=== PATIENT | male | born 1930 | race Caucasian/White ===

== ENCOUNTER 2016-06-16 17:42 | Emergency (ER) | payer MEDICARE, OTHER ==
[2016-06-16 14:58] LABS: BASOPHILS 0.3 %; BASOPHILS ABSOLUTE 0.03 10/3/uL (0.0-0.16); EOSINOPHILS 0.7 %; EOSINOPHILS ABSOLUTE 0.07 10/3/uL (0.0-0.53); ER CBC TAT 0 Hrs 05 Mins; HEMATOCRIT 34.4 % (40.0-51.0); HEMOGLOBIN 10.3 g/dL (13.6-17.8); IMMATURE GRANULOCYTES 0.2 %; IMMATURE GRANULOCYTES ABSOLUTE 0.02 10/3/uL (0.0-0.11); LYMPHOCYTES 13.6 %; LYMPHOCYTES ABSOLUTE 1.29 10/3/uL (0.67-4.30); MEAN CORPUS HGB CONC 29.9 g/dL (32.0-36.0); MEAN CORPUSCULAR HEMOGLOB 23.6 pg (26.0-34.0); MEAN CORPUSCULAR VOLUME 78.9 fL (80-100); MEAN PLATELET VOLUME 9.4 fL (9.2-13.0); MONOCYTES 8.4 %; NEUTROPHILS 76.8 %; NEUTROPHILS ABSOLUTE 7.28 10/3/uL (2.02-8.40); PLATELET COUNT 228 10/3/uL (150-400); RED CELL COUNT 4.36 10/6/uL (4.7-6.1); WHITE BLOOD CELLS 9.5 10/3/uL (4.5-10.5)
[2016-06-16 15:01] LABS: MANUAL DIFF NO %
[2016-06-16 15:07] LABS: INTERNATIONAL NORMAL RATI 1.1 UNITS (-); PARTIAL THROMBO TIME 27.2 SEC (22.5-37.2); PROTIME (NOT ORD) 14.2 SEC (12.0-14.5)
[2016-06-16 15:13] LABS: BUN (BLOOD UREA NITROGEN) 10 MG/DL (6-23); CALCIUM, SERUM 8.4 MG/DL (8.5-10.4); CHLORIDE, SERUM 102 MMOL/L (96-112); CO2 (CARBON DIOXIDE) 33 MMOL/L (24-34); CREATININE 1.06 MG/DL (0.70-1.30); GFR AFRICAN AMERICAN 74 ML/MIN (>=60); GFR NON AFRICAN AMERICAN 64 ML/MIN (>=60); POTASSIUM, SERUM 3.8 MMOL/L (3.5-5.3); SODIUM, SERUM 143 MMOL/L (135-148)
[2016-06-16 15:14] LABS: CHEST PAIN PROFILE TAT 0 Hrs 21 Mins; GLUCOSE, SERUM 123 MG/DL (60-99); TROPONIN I 0.05 NG/ML (<0.05)
[~2016-06-16 17:42] MED LIST: ALEVE220 MG PO; ALLEGRA180 PO; ANTIBIOTIC EAR; ASA5GR PO; ASAB PO; AZASITE OPH; Aspirin; BACDS PO; BETAPACE80 PO; BP MED; BUM1 PO; C2 PO; C25 PO; CIP5 PO; CORTISPORIN OPH; CORTISPORIN11 OT; CORTOTSUSP OT; FENESIN DM1 TAB PO; FISH OIL1200 MG PO; FISH-EPA1000 MG PO; FLEX PO; FLOMAX4 PO; FLONASE NAS; Flexeril; Flexeril PO; GARLIC PO; HALF81 PO; HYDROCHLOROTHIAZIDE PO; INTEGRA PLUS; IRON325 MG PO; KLOR-CON 1010 MEQ PO; L20 PO; LEVAQUIN750 MG PO; LEVOTHYROXIN50 MCG PO; LOP25 PO; Lasix; MAX25 PO; NEXIUM; NEXIUM20 M1 PO; NEXIUM40 PO; OMNICEF300 PO; P1 PO; P10 PO; P20 PO; P5 PO; PREDNISONE; PRIN10 PO; PROAIR HFA INH; RED YEAS1 OR; SORINE80 MG PO; ULTRAM50 PO; XANAX1 MG PO; XYZAL5 MG PO; Xanax; ZITHROMAX PO; ZOFRAN PO; ZOFRAN4 PO
== END 2016-06-16 18:00 | disposition home or self-care (01) ==
LOC: ER 17:42
PROVIDERS: Emergency Medicine
DX: R06.02 Shortness of breath (principal); D64.9 Anemia, unspecified; Z87.01 Personal history of pneumonia (recurrent); Z95.0 Presence of cardiac pacemaker; I27.2 Other secondary pulmonary hypertension; Z88.5 Allergy status to narcotic agent; Z88.1 Allergy status to other antibiotic agents; Z88.8 Allergy status to other drugs, medicaments and biological substances; Z79.52 Long term (current) use of systemic steroids; Z79.82 Long term (current) use of aspirin; Z79.899 Other long term (current) drug therapy
CPT/HCPCS: 71020; 80048; 83735; 83880; 84484; 85025; 85610; 85730; 93005; 99285

== ENCOUNTER 2016-08-04 17:08 | Emergency (ER) | payer MEDICARE, OTHER ==
[2016-08-04 16:53] LABS: BASOPHILS 0.2 %; BASOPHILS ABSOLUTE 0.02 10/3/uL (0.0-0.16); EOSINOPHILS 0.1 %; EOSINOPHILS ABSOLUTE 0.01 10/3/uL (0.0-0.53); HEMATOCRIT 31.6 % (40.0-51.0); HEMOGLOBIN 9.6 g/dL (13.6-17.8); IMMATURE GRANULOCYTES 0.2 %; IMMATURE GRANULOCYTES ABSOLUTE 0.02 10/3/uL (0.0-0.11); LYMPHOCYTES 11.4 %; LYMPHOCYTES ABSOLUTE 0.95 10/3/uL (0.67-4.30); MANUAL DIFF NO %; MEAN CORPUS HGB CONC 30.4 g/dL (32.0-36.0); MEAN CORPUSCULAR HEMOGLOB 23.4 pg (26.0-34.0); MEAN CORPUSCULAR VOLUME 76.9 fL (80-100); MEAN PLATELET VOLUME 9.6 fL (9.2-13.0); MONOCYTES 9.4 %; MONOCYTES ABSOLUTE 0.78 10/3/uL (0.21-1.20); NEUTROPHILS 78.7 %; NEUTROPHILS ABSOLUTE 6.52 10/3/uL (2.02-8.40); PLATELET COUNT 227 10/3/uL (150-400); RBC DISTRIBUTION WIDTH 17.9 % (12.0-16.0); RED CELL COUNT 4.11 10/6/uL (4.7-6.1); WHITE BLOOD CELLS 8.3 10/3/uL (4.5-10.5)
[2016-08-04 16:59] LABS: PARTIAL THROMBO TIME 27.2 SEC (22.5-37.2)
[2016-08-04 17:00] LABS: INTERNATIONAL NORMAL RATI 1.1 UNITS (-); PROTIME (NOT ORD) 14.1 SEC (12.0-14.5)
[2016-08-04 17:08] LABS: BUN (BLOOD UREA NITROGEN) 13 MG/DL (6-23); CALCIUM, SERUM 8.5 MG/DL (8.5-10.4); CHLORIDE, SERUM 99 MMOL/L (96-112); CO2 (CARBON DIOXIDE) 37 MMOL/L (24-34); CREATININE 1.28 MG/DL (0.70-1.30); GFR AFRICAN AMERICAN 59 ML/MIN (>=60); GFR NON AFRICAN AMERICAN 51 ML/MIN (>=60); GLUCOSE, SERUM 136 MG/DL (60-99); SODIUM, SERUM 139 MMOL/L (135-148)
[2016-08-04 17:09] LABS: CHEST PAIN PROFILE TAT 0 Hrs 22 Mins; POTASSIUM, SERUM 2.7 MMOL/L (3.5-5.3); TROPONIN I 0.07 NG/ML (<0.05)
[2016-08-04 21:09] LABS: TROPONIN I 0.07 NG/ML (<0.05)
== END 2016-08-04 22:51 | disposition home or self-care (01) ==
LOC: ER 17:08
PROVIDERS: Nurse Practitioner Acute Care; Physician Assistant
DX: E87.6 Hypokalemia (principal); D64.9 Anemia, unspecified; E10.22 Type 1 diabetes mellitus with diabetic chronic kidney disease; N18.9 Chronic kidney disease, unspecified; R79.89 Other specified abnormal findings of blood chemistry; I50.9 Heart failure, unspecified; Z86.19 Personal history of other infectious and parasitic diseases; Z88.5 Allergy status to narcotic agent; Z88.1 Allergy status to other antibiotic agents; Z88.8 Allergy status to other drugs, medicaments and biological substances; Z79.52 Long term (current) use of systemic steroids; Z79.82 Long term (current) use of aspirin
CPT/HCPCS: 70450; 71010; 80048; 83735; 83880; 84132; 84484; 85025; 85610; 85730; 93005; 96374; 99285; A9270-GY